=== PATIENT | female | born 1950 | race Caucasian/White ===

== ENCOUNTER 2020-10-04 08:50 | Emergency (ER) | payer OTHER ==
[~2020-10-04] VITALS: Ht 165.1 cm; Wt 52.2 kg
[~2020-10-04 08:50] MED LIST: CELEXA40 MG PO; CITALOPRAM10 M1 PO; CLONIDINE HCL0.2 MG PO; CONTRAVE1 TER PO; COZAAR50 MG PO; LEVAQUIN750 MG PO; LEVOCETIRIZINE D5 M1 PO; METOPROLOL SUC100 M2 PO; NORCO1 TA2 PO; PHEL PO; PRO30 PO; PROAIR HFA0.09 MG/A1 INH; PULMICORT180 MCG/Ac INH; TRAZODONE HYDR100 MG PO
[2020-10-04 08:57] VITALS: BP 121/66; Ht 165.1 cm; Wt 52.2 kg
== END 2020-10-04 10:11 | disposition home or self-care (01) ==
LOC: ED 08:50
DX: M75.31 Calcific tendinitis of right shoulder (principal); I10 Essential (primary) hypertension; K21.9 Gastro-esophageal reflux disease without esophagitis
CPT/HCPCS: J1885